=== PATIENT | female | born 1965 | race Caucasian/White ===

== ENCOUNTER 2018-12-28 07:58 | Outpatient (CLI) | payer OTHER ==
[2018-12-28 10:25] LABS: BASOPHILS % (AUTO) 0.9 %; EOSINOPHILS # (AUTO) 0.1 10^3/uL (0.0-0.7); EOSINOPHILS % (AUTO) 2.8 %; HGB - HEMOGLOBIN 13.6 g/dL (12.0-16.0); LYMPHOCYTES % (AUTO) 23.9 %; MEAN CORPUSCULAR HEMOGLOBIN 30.8 pg (27.0-31.0); MEAN CORPUSCULAR HGB CONC 32.9 g/dL (32.0-36.0); MEAN CORPUSCULAR VOLUME 93.6 fL (81.0-99.0); MEAN PLATELET VOLUME 9.7 fL (7.9-10.8); MONOCYTES # (AUTO) 0.3 10^3/uL (0.0-1.0); MONOCYTES % (AUTO) 7.3 %; NEUTROPHILS # (AUTO) 2.8 10^3/uL (1.5-6.6); NEUTROPHILS % (AUTO) 65.1 %; PLT - PLATELET COUNT 191 10^3/uL (130-450); WHITE BLOOD COUNT 4.3 x10^3/uL (4.8-10.8)
[2018-12-28 11:01] LABS: ALBUMIN 4.2 g/dL (3.2-5.5); ALBUMIN/GLOBULIN RATIO 1.5 (1.0-2.2); ALKALINE PHOSPHATASE 68 IU/L (42-121); ALT ALANINE AMINOTRANSFERASE 20 IU/L (10-60); AST ASPARTATE AMINOTRANSFERASE 21 IU/L (10-42); BILIRUBIN,TOTAL 0.6 mg/dL (0.2-1.0); BUN - BLOOD UREA NITROGEN 21 mg/dL (6-20); CALCIUM 9.3 mg/dL (8.5-10.3); CARBON DIOXIDE - CO2 31 mmol/L (21-32); CHLORIDE 106 mmol/L (101-111); CHOL/HDL RATIO 2.2 (<4.4); CHOLESTEROL 172 mg/dL; CREATININE 0.9 mg/dL (0.4-1.0); GFR - MDRD 66 (>89); GLUCOSE 96 mg/dL (70-100); HDL CHOLESTEROL 80 mg/dL; SODIUM 140 mmol/L (135-145)
[2018-12-28 11:21] LABS: LDL CHOLESTEROL,DIRECT 82 mg/dL
== END 2018-12-28 07:59 | disposition home or self-care (01) ==
LOC: LAB.F 07:58
PROVIDERS: ATTEND Nurse Practitioner Psychiatric/Mental Health
DX: F31.81 Bipolar II disorder (principal)
CPT/HCPCS: 36415; 80053; 80061; 83721; 84443; 85025

== ENCOUNTER 2019-08-03 08:55 | Outpatient (CLI) | payer OTHER ==
--- NOTE | 2019-08-05 10:54 | MRI Report ---
Reason: LOCALIZED SWELLING OF LT FOOT Procedure Date: 08/03/2019 Accession Number: [id number] / [id number] Procedure: MRI - Ankle LT W/O CPT Code: Final Report FULL RESULT: EXAM: LEFT FOREFOOT MRI WITHOUT CONTRAST EXAM DATE: 08/03/2019 10:04 AM. CLINICAL HISTORY: Localized swelling of left foot. COMPARISON: None. TECHNIQUE: Multiplanar, multisequence T1-weighted and fluid-sensitive sequences of the forefoot without contrast. Other: None. FINDINGS: Bones: No fractures. No marrow edema. No bone lesions. Joints: No subluxations. No effusions. The poecns-qmnbuzpl-raixzhlefj complex is unremarkable. The visualized plantar plates are unremarkable. Articular Cartilage: Unremarkable. Ligaments: The visualized collateral ligaments are intact. Tendons: The flexor mechanisms in the midfoot show a small amount of fluid intensity surrounding the 2nd, 3rd, and 4th flexor mechanisms. Series 901 image 22. Extensor mechanisms appear normal. Musculature: No edema or fatty atrophy. Other: No intermetatarsal bursitis. There are several small focal cystic structure seen in the plantar aspect of the forefoot, one located at the 1st intermetatarsal space, low on T1, high on T2. Several small septations are present. This is 7.7 mm from front to back by 16.8 mm from top to bottom by 7 mm from side to side. A small similar-appearing low signal T1, high signal T2 collection versus nodule is seen at the plantar aspect of the 2nd MTP joint. This measures 6.3 mm from front to back by 8.6 mm from top to bottom by 4.9 mm from side to side. A small focus of low signal on T1, high signal on T2 with some septations also seen in the plantar aspect of the foot at the 3rd interspace measures 6 mm from top to bottom by 8.8 mm front to back by 4.9 mm from side to side. IMPRESSION: 1. No bony abnormalities. 2. There is mild tendinitis seen at the flexor mechanisms of the midfoot with fluid intensity surrounding the 2nd, 3rd and 4th flexor mechanisms. 3. At least 3 focal discrete areas of low signal on T1 and high signal on T2 are seen in the plantar aspect of the foot. These may be small cystic areas 2ndary to overuse. These may also be related to neuromas, considered unlikely because of the multiplicity of these lesions. If additional diagnostic confidence is needed, MRI scan with IV contrast will likely help. [facility]
== END 2019-08-03 08:56 | disposition home or self-care (01) ==
LOC: DI 08:55
PROVIDERS: ATTEND Physician Assistant Surgical
DX: M77.52 Other enthesopathy of left foot and ankle (principal); R22.42 Localized swelling, mass and lump, left lower limb

== ENCOUNTER 2023-06-08 10:24 | Emergency (ER) | payer OTHER ==
[2023-06-08 10:39] VITALS: BP 116/73; O2SAT 100
--- NOTE | 2023-06-08 10:59 | ED Physician Documentation ---
PD HPI UPPER EXT INJURY - Stated complaint Stated Complaint: LT THUMB LAC - Chief complaint Chief Complaint: Laceration - History obtained from History obtained from: Patient - History of Present Illness Location: Left, Finger (dorsal IP thumb) Type of injury: Laceration (utility knife) Timing - onset: Today Timing - details: Abrupt onset, Still present Worsened by: Palpating. No: Moving Associated symptoms: No: Weakness, Numbness Similar symptoms before: Has not had sx before Review of Systems Neurologic: denies: Focal weakness, Numbness PD PAST MEDICAL HISTORY - Past Medical History Cardiovascular: None Endocrine/Autoimmune: None - Allergies Allergies/Adverse Reactions: Allergies Allergy/AdvReac Type Severity Reaction Status Date / Time No Known Drug Allergies Allergy Verified 06/08/23 10:36 PD ED PE NORMAL - Vitals Vital signs reviewed: Yes - General General: Alert and oriented X 3, No acute distress, Well developed/nourished - Derm Derm: Normal color, Warm and dry - Extremities Extremities: Other (left thumb IP dorsally with 1 cm laceration to fatty tissue layer without tendon/joint involvement. Good Extension against resistance. no FB. Bleeding mildly. ) - Neuro Neuro: No motor deficit, No sensory deficit Results - Vitals Vitals: Oxygen O2 Source Room air Procedures - Laceration (location) left thumb dorsal IP Length in cm: 1 Wound type: Linear, Into subcut fat, Clean Neurovascular status: Sensory intact, Motor intact, Vascular intact Tendon involvement: Tendon intact Anesthesia: Lidocaine 1% Wound preparation: Irrigated copiously NS, Wound explored, To the base Skin layer closure: Nylon, Interrupted, Size #-0 - enter number (4), Sutures - enter # (5) Other: Patient tolerated well, No complications, Neurovascular intact, Dressing applied, Tetanus UTD PD Medical Decision Making - ED course Complexity details: considered differential (laceration to dorsal IP of thumb, with opening of it on flexion, and still bleeding with that. Not amenable to tap e/glue. ), d/w patient Departure - Departure Disposition: 01 Home, Self Care Clinical Impression: Thumb laceration Qualifiers: Encounter type: initial encounter Damage to nail status: without damage Foreign body presence: without foreign body Laterality: left Qualified Code(s): S61.012A - Laceration without foreign body of left thumb without damage to nail, initial encounter Condition: Stable Record reviewed to determine appropriate education?: Yes Instructions: ED Laceration Hand Follow-Up: Elle Puentes MD [Physician No Access] - Comments: It is okay to wash and shower. Clean off the wound twice a day with soap and water, or peroxide and water. Apply some antibiotic ointment to it to keep it moist. Also to watch for signs of infection such as purulence, redness or increasing pain. Return to your primary care or the ER at the specified time for suture removal. Gentle use of the thumb as its healing so it does not have stiffness of the scarring. Suture removal 8 to 10 days. Forms: PCP List Discharge Date/Time: 06/08/23 11:28
== END 2023-06-08 11:28 | disposition home or self-care (01) ==
LOC: ED 10:24
DX: S61.012A Laceration without foreign body of left thumb without damage to nail, initial encounter (principal); W26.0XXA Contact with knife, initial encounter
CPT/HCPCS: 12001; 99282